=== PATIENT | male | born 1950 | race Caucasian/White ===

== ENCOUNTER 2024-11-15 22:29 | Inpatient (IN) | payer MEDICARE, MEDICAID ==
[~2024-11-15] VITALS: Ht 152.4 cm; Wt 45.8 kg
[2024-11-16] VITALS (48 sets, daily range): BP systolic 112–162; BP diastolic 56–88; PULSE 67–85; RESP 9–24; TEMP 36.1–37; O2SAT 96–100
[2024-11-16] MEDS: ACETAMINOPHEN 500MG TABLET PO ONE (01:20)
[2024-11-16 04:09] LABS: BASOPHILS % 1.3 % (0.0-2.0); EOSINOPHILS % 8.1 % (0.0-5.0); HEMATOCRIT. 46.0 % (42.0-52.0); HEMOGLOBIN. 14.6 g/dL (14.0-18.0); LYMPHOCYTES % 14.0 % (20.0-50.0); MEAN PLATELET VOLUME 9.1 fl (7.4-10.4); MONOCYTES % 7.8 % (2.0-8.0); NEUTROPHILS % 68.8 % (40.0-76.0); PLATELET 367 x1000/uL (130-400); RED BLOOD CELL COUNT 5.08 mill/uL (4.7-6.1); RED CELL DISTRIBUTION WIDTH 15.6 % (11.6-14.6)
[2024-11-16 04:22] LABS: INR 0.9
[2024-11-16 04:27] LABS: CREATININE 1.6 mg/dL (0.6-1.3); UREA NITROGEN BLOOD 41.0 mg/dL (9-23)
[2024-11-16] MEDS ORDERED: ALBUTEROL (0.083%) 2.5MG/3ML NEB HHN ONE (05:30)
[2024-11-16] MEDS: DEXTROSE 50% WATER 50ML SYRINGE IV ONE (06:22)
[2024-11-16] MEDS: INSULIN REGULAR (HUMULIN R) 1000UNITS/10ML VIAL IV ONE (06:22)
[2024-11-16] MEDS: SODIUM BICARBONATE 8.4% 50MEQ/50ML SYR IV ONE (06:25)
[2024-11-16] MEDS: FUROSEMIDE 100MG/10ML VIAL IV STA (06:26)
[2024-11-16] MEDS ORDERED: ONDANSETRON HCL 4MG/2ML INJ IV PRN ×2 (06:45→21:00)
[2024-11-16] MEDS ORDERED: IPRATROPIUM/ALBUTEROL 0.5-3(2.5)MG/3ML NEB NEB PRN (06:45)
[2024-11-16] MEDS ORDERED: DEXT 5%/0.45% NACL 1000ML 1,000 ML IV SCH (06:45)
[2024-11-16] MEDS ORDERED: NICARDIPINE 100 MG in SODIUM CHLORIDE 0.9% 60 ML IV PRN (07:30)
[2024-11-16] MEDS: DEXT 5%/LACTATED RINGERS 1,000 ML IV SCH (07:30)
[2024-11-16] MEDS: ALBUTEROL (0.083%) 2.5MG/3ML NEB HHN SCH (07:38)
[2024-11-16] MEDS: CEFAZOLIN 1000MG PREMIX 50 ML IV SCH ×2 (09:00→20:47)
[2024-11-16] MEDS: NICARDIPINE 100 MG in SODIUM CHLORIDE 0.9% 60 ML IV PRN (09:07)
[2024-11-16] MEDS: DEXAMETHASONE 4MG/ML 1ML VIAL IV SCH (12:45)
[2024-11-16] MEDS: BLOOD SUGAR DIAGNOSTIC STRIP TEST SCH (13:48)
[2024-11-16] MEDS: INSULIN LISPRO 100 UNITS/ML SUBCUT SCH (13:48)
[2024-11-16] MEDS: SODIUM CHLORIDE 0.9% 3ML FLUSH IVF SCH (14:06)
[2024-11-16] MEDS ORDERED: ACETAMINOPHEN 650MG/20.3ML UDC PO PRN (21:00)
[2024-11-16] MEDS ORDERED: ASPI-1406 PO (21:05)
[2024-11-16] MEDS ORDERED: ATOR40TA70 PO (21:05)
[2024-11-16] MEDS ORDERED: SERT25TA74 PO (21:05)
[2024-11-16] MEDS ORDERED: CARV6.2548 PO (21:05)
[2024-11-16] MEDS ORDERED: CLOP75TA33 PO (21:05)
[2024-11-16] MEDS ORDERED: AMLO10TA80 PO (21:05)
[2024-11-16] MEDS ORDERED: DEXTROSE 50% WATER 50ML SYRINGE IV PRN (21:15)
[2024-11-17] VITALS (97 sets, daily range): BP systolic 122–162; BP diastolic 48–117; PULSE 62–89; RESP 8–26; TEMP 36.4–37.4; O2SAT 96–100
[2024-11-17] MEDS: INSULIN GLARGINE 100 UNITS/ML SUBCUT SCH ×2 (00:40→10:07)
[2024-11-17] MEDS: INSULIN LISPRO 100 UNITS/ML SUBCUT SCH ×2 (00:41→13:07)
[2024-11-17 04:50] LABS: BASOPHILS % 0.3 % (0.0-2.0); EOSINOPHILS % 0.1 % (0.0-5.0); HEMATOCRIT. 43.1 % (42.0-52.0); HEMOGLOBIN. 14.2 g/dL (14.0-18.0); LYMPHOCYTES % 9.3 % (20.0-50.0); MEAN PLATELET VOLUME 9.5 fl (7.4-10.4); MONOCYTES % 5.9 % (2.0-8.0); NEUTROPHILS % 84.4 % (40.0-76.0); PLATELET 370 x1000/uL (130-400); RED BLOOD CELL COUNT 4.87 mill/uL (4.7-6.1); RED CELL DISTRIBUTION WIDTH 15.3 % (11.6-14.6)
[2024-11-17 05:13] LABS: CREATININE 1.6 mg/dL (0.6-1.3); UREA NITROGEN BLOOD 39.0 mg/dL (9-23)
[2024-11-17 06:26] LABS: CLARITY URINE CLEAR (CLEAR); COLOR URINE YELLOW (YELLOW); GLUCOSE URINE 3+ (NEGATIVE); KETONES URINE NEGATIVE (NEGATIVE); LEUKOCYTE ESTERASE URINE NEGATIVE (NEGATIVE); NITRITE URINE NEGATIVE (NEGATIVE); OCCULT BLOOD URINE TRACE (NEGATIVE); PH URINE 5.5 (4.5-8.0); PROTEIN URINE 2+ (NEGATIVE); SPECIFIC GRAVITY URINE 1.023 (1.005-1.030); UROBILINOGEN URINE 0.2 E.U./dL (0.2-1.0)
[2024-11-17] MEDS ORDERED: BLOOD SUGAR DIAGNOSTIC STRIP TEST SCH (06:30)
[2024-11-17 06:51] LABS: SQUAMOUS EPITHELIAL CELL URINE FEW /lpf (RARE/1+)
[2024-11-17 06:54] LABS: RBC URINE 0-2 /hpf (0-2); WBC URINE 0-2 /hpf (0-2)
[2024-11-17 06:56] LABS: BACTERIA URINE NONE SEEN
[2024-11-17] MEDS ORDERED: INSULIN LISPRO 100 UNITS/ML SUBCUT SCH (07:00)
[2024-11-17] MEDS: PANTOPRAZOLE SODIUM 40 MG/VIAL IV SCH (08:08)
[2024-11-17] MEDS: SERTRALINE HCL 25MG TABLET PO SCH (08:09)
[2024-11-17] MEDS: AMLODIPINE 10MG TABLET PO SCH ×2 (08:09→22:43)
[2024-11-17] MEDS: CARVEDILOL 6.25 MG TABLET PO SCH (08:09)
[2024-11-17] MEDS ORDERED: ASPIRIN 81MG EC TABLET PO SCH (09:00)
[2024-11-17] MEDS ORDERED: HYDRALAZINE 20MG/ML VIAL IV PRN (09:45)
[2024-11-17] MEDS: LISINOPRIL 5MG TABLET PO SCH (10:06)
[2024-11-17] MEDS: ATORVASTATIN CALCIUM 40MG TABLET PO SCH (21:45)
[2024-11-18] VITALS (36 sets, daily range): BP systolic 112–181; BP diastolic 50–102; PULSE 61–84; RESP 12–22; TEMP 36.5–36.9; O2SAT 96–99
[2024-11-18] MEDS: HYDRALAZINE 20MG/ML VIAL IV PRN (00:25)
[2024-11-18 05:41] LABS: HEMATOCRIT. 38.8 % (42.0-52.0); HEMOGLOBIN. 12.7 g/dL (14.0-18.0); MEAN PLATELET VOLUME 9.8 fl (7.4-10.4); PLATELET 346 x1000/uL (130-400); RED BLOOD CELL COUNT 4.31 mill/uL (4.7-6.1); RED CELL DISTRIBUTION WIDTH 15.4 % (11.6-14.6)
[2024-11-18 06:04] LABS: CREATININE 1.3 mg/dL (0.6-1.3); TRIGLYCERIDE 77.0 mg/dL (0-150); UREA NITROGEN BLOOD 43.0 mg/dL (9-23)
[2024-11-18 06:05] LABS: LDL CHOLESTEROL 56.0 mg/dL (5-100)
[2024-11-18 09:01] LABS: BAND% 10.0 % (1.0-6.0); LYMPHOCYTES % MANUAL 14.0 % (20.0-50.0); MONOCYTES % MANUAL 14.0 % (2.0-8.0); NEUTROPHILS % MANUAL 62.0 % (45.0-75.0)
[2024-11-18 09:02] LABS: PLATELET ESTIMATE NORMAL
[2024-11-18] MEDS: INSULIN GLARGINE 100 UNITS/ML SUBCUT SCH (10:27)
[2024-11-18] MEDS: PIPERACILLIN/TAZO 3.375G/50ML 50 ML IV SCH (11:20)
[2024-11-18] MEDS: VANCOMYCIN 1GM PMX (XELLIA) 200 ML IV SCH (12:34)
[2024-11-18 16:14] LABS: LACTIC ACID 2.5 mmol/L (0.4-2.0)
[2024-11-19] VITALS (11 sets, daily range): BP systolic 112–164; BP diastolic 59–84; PULSE 65–79; RESP 16–23; TEMP 36.2–36.8; O2SAT 95–99
[2024-11-19 06:32] LABS: CREATININE 1.5 mg/dL (0.6-1.3); UREA NITROGEN BLOOD 46.0 mg/dL (9-23)
[2024-11-19 06:42] LABS: BASOPHILS % 0.5 % (0.0-2.0); EOSINOPHILS % 1.0 % (0.0-5.0); HEMATOCRIT. 43.5 % (42.0-52.0); HEMOGLOBIN. 14.2 g/dL (14.0-18.0); LYMPHOCYTES % 11.4 % (20.0-50.0); MEAN PLATELET VOLUME 10.0 fl (7.4-10.4); MONOCYTES % 8.6 % (2.0-8.0); NEUTROPHILS % 78.5 % (40.0-76.0); PLATELET 365 x1000/uL (130-400); RED BLOOD CELL COUNT 4.85 mill/uL (4.7-6.1); RED CELL DISTRIBUTION WIDTH 15.5 % (11.6-14.6)
[2024-11-19] MEDS: VANCOMYCIN 750MG PMX (XELLIA) 150 ML IV SCH (15:06)
== END 2024-11-19 19:43 | disposition hospice, home (50) | DRG 871 ==
LOC: ER 22:29 → EDBEDREQTM 11-16 05:36 → EDBEDREQ 11-16 05:36 → EDBEDREQSVC 11-16 06:48 → ENRESERV 11-16 10:47 → MICUSO 11-16 11:58 → 5EST 11-18 18:45
PROVIDERS: ADMIT Internal Medicine; ATTEND Internal Medicine
PROC: 4A00X4Z Measurement of Central Nervous Electrical Activity, External Approach (ICD-10-PCS; principal; 2024-11-18)
DX: A41.9 Sepsis, unspecified organism (principal); S06.370A Contusion, laceration, and hemorrhage of cerebellum without loss of consciousness, initial encounter; N17.9 Acute kidney failure, unspecified; E87.20 Acidosis, unspecified; G93.89 Other specified disorders of brain; H44.521 Atrophy of globe, right eye; I16.0 Hypertensive urgency; E11.22 Type 2 diabetes mellitus with diabetic chronic kidney disease; I25.10 Atherosclerotic heart disease of native coronary artery without angina pectoris; I12.9 Hypertensive chronic kidney disease with stage 1 through stage 4 chronic kidney disease, or unspecified chronic kidney disease; N18.9 Chronic kidney disease, unspecified; Z51.5 Encounter for palliative care; Z86.73 Personal history of transient ischemic attack (TIA), and cerebral infarction without residual deficits; W18.30XA Fall on same level, unspecified, initial encounter; Y93.89 Activity, other specified; Y92.89 Other specified places as the place of occurrence of the external cause; Y99.8 Other external cause status
CPT/HCPCS: 36415; 71045; 80048; 80061; 81003; 82962; 83036; 83605; 84132; 84145; 84443; 85025; 93005; 93306; 93970; 94070; 94640; 94664; 95816; 97162; 98960; 99285; J0360; J0690; J1100; J1815; J1940; J2470; J2543; J3370; J3490; J7050